=== PATIENT | female | born 1975 | race American Indian/Alaskan Native ===

== ENCOUNTER 2017-12-25 13:47 | Emergency (ER) | payer SELFPAY ==
[2017-12-25 14:07] VITALS: BP 110/73
--- NOTE | 2017-12-25 16:05 | Emergency Department Report ---
HPI - General Chief Complaint: Upper Respiratory Infection Time Seen by Provider: 12/25/17 15:42 - HPI HPI: Patient here reports headache, body ache and feeling cold. She says she felt dizzy at work so she decided to come into the emergency room. Patient says she' s been sick for 2 days. She denies any pain at present but reports that she gets headache on and off but none now. Denies any shortness of breath or chest pain. Reports congestion. She says she has occasional coughing. Denies any fever or chills. Denies any nausea or vomiting. Denies any abdominal or back pain. No [id number]. Medication taken for symptoms. ED Past Medical Hx - Past Medical History Previous Medical History?: Yes Additional medical history: fibroids - Surgical History Past Surgical History?: No - Family History Family history: no significant - Social History Smoking Status: Never Smoker Substance Use Type: None - Medications Home Medications: Home Medications Medication Instructions Recorded Confirmed Last Taken Type Cetirizine HCl [ZyrTEC] 10 mg PO QAM 14 Days #14 capsule 12/25/17 Unknown Rx Fluticasone [Flonase] 1 spray NS QDAY 14 Days #1 bottle 12/25/17 Unknown Rx Ibuprofen [Motrin] 600 mg PO Q8H PRN #12 tablet 12/25/17 Unknown Rx predniSONE [Deltasone] 20 mg PO QDAY 3 Days #3 tab 12/25/17 Unknown Rx ED Review of Systems ROS: Stated complaint: SOB/DIZZINESS Other details as noted in HPI Comment: All other systems reviewed and negative Constitutional: no symptoms reported ENT: congestion. denies: ear pain, throat pain, dental pain, hearing loss, epistaxis Respiratory: cough. denies: orthopnea, shortness of breath, SOB with exertion, SOB at rest, stridor, wheezing Cardiovascular: denies: chest pain, palpitations, dyspnea on exertion, orthopnea , edema, syncope, paroxysmal nocturnal dyspnea Gastrointestinal: denies: abdominal pain, nausea, vomiting, diarrhea, constipation Genitourinary: denies: urgency, dysuria, frequency, hematuria Musculoskeletal: myalgia. denies: back pain, joint swelling, arthralgia Skin: denies: rash Neurological: denies: headache Physical Exam - Physical Exam Vital Signs: Vital Signs 12/25/17 14:02 Temperature 98.2 F Pulse Rate 82 Respiratory 16 Rate Blood Pressure 110/73 O2 Sat by Pulse 100 Oximetry General: This is a 42-year-old female well-nourished well-developed in no acute distress. Physical Exam: Head: Normocephalic atraumatic Ears:BIateral TM congested without erythema and loss of bony landmarks. Bebeto EAC with normal exam. No mastoid bone tenderness. Mouth: Moist, no pharyngeal erythema or exudate . No tonsillar erythema or exudate. UVULA midline and oral airways patent. No peritonsillar abscess Neck: Nontender to palpate, supple, normal range of motion. No adenopathy. No c- spine tenderness. Nose: Bilateral nasal mucosa congested with clear drainage. Maxillary and frontal sinuses non-tender to palpate. Eyes: Bilateral Sclerae and conjunctiva without injection. Bilateral pupils equal and reactive to light. Bilateral lids are normal. Normal accommodation.BEOMI Extremity: No Clubbing, cyanosis or edema. +2 pulses all extremities and no neurovascular compromise Abdomen: Soft ,nontender to palpation in all quadrants. Normal bowel sounds. Lungs: Clear to auscultate bilaterally, no rhonchi wheezes or rales. Normal work of breathing and no chest wall tenderness. CV: S1, S2. Regular rate and regular rhythm ,negative murmur. Capillary refill is less than 3 seconds Skin: Clean dry and intact, no rashes or lesions Psych: Normal mood and behavior ED Course Vital Signs 12/25/17 14:02 Temperature 98.2 F Pulse Rate 82 Respiratory 16 Rate Blood Pressure 110/73 O2 Sat by Pulse 100 Oximetry - Reevaluation(s) Reevaluation #1: 12/25/17 16:47 Vision stable throughout ED stay ED Medical Decision Making - Radiology Data Radiology results: report reviewed Chest x-ray revealed no acute cardiopulmonary findings - Medical Decision Making ED course: Complaining of cough, congestion, occasional headache and body aches. She was found to have acute upper respiratory tract infection with cough and congestion, musculoskeletal pain. Chest x-ray revealed no acute cardiopulmonary findings. This is explained to patient and she voiced understanding of discharge diagnoses, treatment plan and need to follow-up. I discussed with patient that this is a viral infection and she needs to rest for 3 days and drink plenty of fluid to include orange juice and take vitamin C to blister immune system. She voiced understanding. Patient discharged home with prescription for Flonase, prednisone and Zyrtec Critical care attestation.: If time is entered above; I have spent that time in minutes in the direct care of this critically ill patient, excluding procedure time. ED Disposition Clinical Impression: Upper respiratory infection with cough and congestion, Musculoskeletal pain Disposition: TO HOME OR SELFCARE Is pt being admited?: No Does the pt Need Aspirin: No Condition: Stable Instructions: Musculoskeletal Pain (ED), Upper Respiratory Infection (ED), Acute Cough (ED) Additional Instructions: Please take medication as prescribed Increase clear fluid intake Primary care physician as discussed and if he do not have a primary care physician please follow-up with [facility] Take Zyrtec and Flonase to help with congestion and Motrin for pain Prescriptions: Cetirizine HCl [ZyrTEC] 10 mg PO QAM 14 Days #14 capsule Fluticasone [Flonase] 1 spray NS QDAY 14 Days #1 bottle Ibuprofen [Motrin] 600 mg PO Q8H PRN #12 tablet PRN Reason: Pain predniSONE [Deltasone] 20 mg PO QDAY 3 Days #3 tab Referrals: [facility] [Outside] - 2-3 Days Forms: Work/School Release Form(ED)
--- NOTE | 2017-12-25 16:35 | XRay Report ---
FINAL REPORT EXAM: XR CHEST ROUTINE 2V HISTORY: CAMREN TECHNIQUE: Two view chest PA and lateral PRIORS: None. FINDINGS: Cardiac and mediastinal contours are unremarkable. No focal pulmonary infiltrate is identified. No pleural fluid collection seen. Pulmonary vasculature is unremarkable. IMPRESSION: Negative two-view chest
== END 2017-12-25 17:02 | disposition home or self-care (01) ==
LOC: ED 13:47
DX: J06.9 Acute upper respiratory infection, unspecified (principal); M79.1 Myalgia
CPT/HCPCS: 71046; 99283

== ENCOUNTER 2017-12-30 01:45 | Emergency (ER) | payer OTHER ==
[2017-12-30 02:03] VITALS: BP 123/82
[2017-12-30] MEDS ORDERED: FUL-GLO OP ONE (02:06)
[2017-12-30] MEDS ORDERED: TETRACAINE 0.5% OU ONE (02:07)
--- NOTE | 2017-12-30 02:20 | Emergency Department Report ---
ED Eye Problem HPI - General Chief complaint: Eye Problems Stated complaint: LT EYE INJURY Time Seen by Provider: 12/30/17 02:14 Source: patient Mode of arrival: Ambulatory Limitations: No Limitations - History of Present Illness Initial comments: 42-year-old -[place] female comes in for bilateral eye redness and swelling 1 day. Patient reports that she is having drainage blurry vision with left eye earlier today now resolved. Claims a headache with photosensitivity. Patient is a contact wearer. She reports that she was having allergies and started to scratch her eye and in her eyes became swollen. She has no past medical history currently taking no meds and has no known drug allergies. She was recently seen here on the and was prescribed Zyrtec and Flonase ibuprofen and prednisone. Patient reports that she did not get the Zyrtec or the Flonase field. chief complaint: eye pain, eye redness, vision change -: days(s) (1) Location: both eyes - Related Data Previous Rx's Medication Instructions Recorded Last Taken Type Cetirizine HCl [ZyrTEC] 10 mg PO QAM 14 Days #14 capsule 12/25/17 Unknown Rx Fluticasone [Flonase] 1 spray NS QDAY 14 Days #1 bottle 12/25/17 Unknown Rx Ibuprofen [Motrin] 600 mg PO Q8H PRN #12 tablet 12/25/17 Unknown Rx predniSONE [Deltasone] 20 mg PO QDAY 3 Days #3 tab 12/25/17 Unknown Rx Cetirizine HCl [ZyrTEC] 10 mg PO QDAY #30 capsule 12/30/17 Unknown Rx Ofloxacin [Ocuflox 0.3%] 1 - 2 drop OP QID #1 bottle 12/30/17 Unknown Rx Allergies Allergy/AdvReac Type Severity Reaction Status Date / Time No Known Allergies Allergy Unverified 12/25/17 14:51 ED Review of Systems ROS: Stated complaint: LT EYE INJURY Other details as noted in HPI Constitutional: denies: chills, fever Eyes: eye pain, eye discharge ENT: denies: ear pain, throat pain Respiratory: denies: cough, shortness of breath, wheezing Cardiovascular: denies: chest pain, palpitations Endocrine: no symptoms reported Gastrointestinal: denies: abdominal pain, nausea, diarrhea Genitourinary: denies: urgency, dysuria, discharge Musculoskeletal: denies: back pain, joint swelling, arthralgia Skin: denies: rash, lesions Neurological: denies: headache, weakness, paresthesias Psychiatric: denies: anxiety, depression Hematological/Lymphatic: denies: easy bleeding, easy bruising ED Past Medical Hx - Past Medical History Previous Medical History?: Yes Additional medical history: fibroids, ovarian cyst - Surgical History Past Surgical History?: Yes Additional Surgical History: x1 - Social History Smoking Status: Never Smoker Substance Use Type: None - Medications Home Medications: Home Medications Medication Instructions Recorded Confirmed Last Taken Type Cetirizine HCl [ZyrTEC] 10 mg PO QAM 14 Days #14 capsule 12/25/17 Unknown Rx Fluticasone [Flonase] 1 spray NS QDAY 14 Days #1 bottle 12/25/17 Unknown Rx Ibuprofen [Motrin] 600 mg PO Q8H PRN #12 tablet 12/25/17 Unknown Rx predniSONE [Deltasone] 20 mg PO QDAY 3 Days #3 tab 12/25/17 Unknown Rx Cetirizine HCl [ZyrTEC] 10 mg PO QDAY #30 capsule 12/30/17 Unknown Rx Ofloxacin [Ocuflox 0.3%] 1 - 2 drop OP QID #1 bottle 12/30/17 Unknown Rx ED Physical Exam - General Limitations: No Limitations General appearance: alert, in no apparent distress - Head Head exam: Present: atraumatic, normocephalic - Eye Eye exam: Present: PERRL, conjunctival injection, other Pupils: Present: normal accommodation, other (Fluorescein exam negative for any corneal abrasion) - Expanded Eye Exam Expanded Eyelids: Swelling: Bilateral Pupils: Regular, Round: Bilateral, Reactive: Bilateral Sclera/Conjunctival: Injection: Bilateral, Exudate: Left Visual acuity (R) = 20/: 40 Visual acuity (L) = 20/: 200 With correction: No - ENT ENT exam: Present: mucous membranes moist - Neck Neck exam: Present: normal inspection - Extremities Exam Extremities exam: Present: normal inspection - Neurological Exam Neurological exam: Present: alert, oriented X3 - Psychiatric Psychiatric exam: Present: normal affect, normal mood ED Course Vital Signs 12/30/17 01:54 Temperature 97.6 F Pulse Rate 18 L Respiratory 18 Rate Blood Pressure 123/82 O2 Sat by Pulse 98 Oximetry ED Medical Decision Making - Medical Decision Making Patient has been evaluated by this provider fast type. Discussed the patient that she needs to not her contacts for couple days. She needs to use the Ocuflox eyedrops as prescribed. She needs to fill the prescription for Zyrtec' s. Follow-up with her primary care provider. Critical care attestation.: If time is entered above; I have spent that time in minutes in the direct care of this critically ill patient, excluding procedure time. ED Disposition Clinical Impression: Conjunctivitis due to adenovirus, both eyes Disposition: DC-01 TO HOME OR SELFCARE Is pt being admited?: No Does the pt Need Aspirin: No Condition: Stable Instructions: Conjunctivitis (ED) Additional Instructions: Please see his prescription as prescribed. Follow up with her primary care provider. Prescriptions: Cetirizine HCl [ZyrTEC] 10 mg PO QDAY #30 capsule Ofloxacin [Ocuflox 0.3%] 1 - 2 drop OP QID #1 bottle Referrals: PRIMARY CARE, [Primary Care Provider] - 3-5 Days Forms: Work/School Release Form(ED)
== END 2017-12-30 02:45 | disposition home or self-care (01) ==
LOC: ED 01:45
DX: B30.1 Conjunctivitis due to adenovirus (principal)
CPT/HCPCS: 99282

== ENCOUNTER 2018-03-25 02:58 | Emergency (ER) | payer SELFPAY ==
[2018-03-25 03:15] VITALS: BP 138/68
--- NOTE | 2018-03-25 04:07 | XRay Report ---
FINAL REPORT EXAM: XR KNEE 1-2V RT HISTORY: Rt knee pain/swelling s/p fall TECHNIQUE: AP and lateral views of the right knee were submitted. FINDINGS: There is no evidence of fracture or soft tissue injury. 3 compartments are well maintained. Joint fluid is not seen. There is spurring along the superior margin of the patella. IMPRESSION: Mild patellar spurring. No acute injury.
== END 2018-03-25 04:00 | disposition left against medical advice (07) ==
LOC: ED 02:58
DX: M25.561 Pain in right knee (principal); Z53.21 Procedure and treatment not carried out due to patient leaving prior to being seen by health care provider

== ENCOUNTER → 2018-06-27 19:41 | Emergency (ER) | payer SELFPAY ==
[2018-06-27 20:09] VITALS: BP 114/69
== END | disposition left against medical advice (07) ==
LOC: ED 19:41
DX: R10.9 Unspecified abdominal pain (principal); Z53.21 Procedure and treatment not carried out due to patient leaving prior to being seen by health care provider